=== PATIENT | male | born 1995 | race Caucasian/White ===

== ENCOUNTER 2019-09-12 19:21 | Emergency (ER) | payer SELFPAY ==
[2019-09-12] MEDS ORDERED: Proparacaine 0.5% Opth 15 ML BOT ONE (19:37)
[2019-09-12] MEDS ORDERED: Fluorescein Opthalmic Strip ONE (19:41)
== END 2019-09-12 20:18 | disposition home or self-care (01) ==
LOC: ERS 19:21
DX: S05.02XA Injury of conjunctiva and corneal abrasion without foreign body, left eye, initial encounter (principal); H10.12 Acute atopic conjunctivitis, left eye; L03.213 Periorbital cellulitis; F90.9 Attention-deficit hyperactivity disorder, unspecified type; F17.210 Nicotine dependence, cigarettes, uncomplicated; X58.XXXA Exposure to other specified factors, initial encounter
CPT/HCPCS: 99283